=== PATIENT | male | born 1995 | race Hispanic/Latino ===

== ENCOUNTER 2017-08-08 23:28 | Emergency (ER) | payer SELFPAY ==
[2017-08-09] MEDS ORDERED: HYDROCODONE/APAP 7.5/325 MG TAB ONE (00:33)
--- NOTE | 2017-08-09 00:53 | ER ---
Nurse's Notes [facility] Name: Raza Escobedo Jr Age: 22 yrs Sex: Male : 1995 Arrival Date: 08/08/2017 Time: 23:30 Bed 18 Private MD: Diagnosis: Pain in left knee Presentation: 08/08 23:38 Presenting complaint: Patient states: that 2 weeks ago at work he was in a position and fc put a lot of pressure on it. Started to hurt a little bit. Today he was walking down a ramp and his left knee popped and now is he in a lot of pain. Transition of care: patient was not received from another setting of care. Onset of symptoms was July 2017. Risk Assessment: Do you want to hurt yourself or someone else? Patient reports no desire to harm self or others. Initial Sepsis Screen: Does the patient meet any 2 criteria? No. Patient's initial sepsis screen is negative. Does the patient have a suspected source of infection? No. Patient's initial sepsis screen is negative. Care prior to arrival: Medication(s) given: Motrin, 800 mg, taken at 2030. 23:38 Method Of Arrival: Ambulatory 23:38 Acuity: ELE 4 Triage Assessment: 23:41 General: Appears uncomfortable, obese, Behavior is calm, cooperative, appropriate for age. Pain: Complains of pain in left knee Pain currently is 9 out of 10 on a pain scale. Quality of pain is described as sharp, Pain began 2 weeks ago Is continuous, Aggravated by increased activity, repositioning, weight bearing. EENT: No deficits noted. Neuro: Level of Consciousness is awake, alert, obeys commands, Oriented to person, place, time, situation. Cardiovascular: No deficits noted. Respiratory: No deficits noted. GI: No deficits noted. : No deficits noted. Derm: Skin is pink, warm \T\ dry. Musculoskeletal: Circulation, motion, and sensation intact. Capillary refill < 3 seconds, Range of motion: intact in all extremities, Reports pain in left knee. Historical: - Allergies: 23:41 PENICILLINS; fc - Home Meds: 23:41 None [Active]; fc - PMHx: 23:41 None; fc - PSHx: 23:41 None; fc - Immunization history:: Last tetanus immunization: unknown. - Social history:: Smoking status: Patient uses tobacco products, smokes one-half pack cigarettes per day, Patient uses alcohol, occasionally. Patient/guardian denies using street drugs. - Ebola Screening: : Patient negative for fever greater than or equal to 101.5 degrees Fahrenheit, and additional compatible Ebola Virus Disease symptoms Patient denies exposure to infectious person Patient denies travel to an Ebola-affected area in the 21 days before illness onset. Screenin:44 Abuse screen: Denies threats or abuse. Nutritional screening: No deficits noted. fc Tuberculosis screening: No symptoms or risk factors identified. Fall Risk None identified. Assessment: 23:45 Reassessment: see triage assessment. 08/09 00:08 General: Appears uncomfortable, Behavior is calm, cooperative, appropriate for age. jd3 Pain: Complains of pain in left knee Pain does not radiate. Pain currently is 9 out of 10 on a pain scale. Quality of pain is described as aching, sharp, Is continuous. Neuro: Level of Consciousness is awake, alert, obeys commands, Oriented to person, place, time, situation. Cardiovascular: Heart tones S1 S2 present Capillary refill < 3 seconds Patient's skin is warm and dry. Respiratory: Airway is patent Respiratory effort is even, unlabored, Respiratory pattern is regular, symmetrical, Breath sounds are clear bilaterally. GI: No signs and/or symptoms were reported involving the gastrointestinal system. : No signs and/or symptoms were reported regarding the genitourinary system. EENT: No signs and/or symptoms were reported regarding the EENT system. Derm: Skin is intact, Skin is dry, Skin is normal, Skin temperature is warm. Musculoskeletal: Circulation, motion, and sensation intact. Range of motion: limited in left knee. 01:38 Reassessment: Patient appears in no apparent distress at this time. Patient and/or jd3 family updated on plan of care and expected duration. Pain level reassessed. Patient is alert, oriented x 3, equal unlabored respirations, skin warm/dry/pink. pt reported understanding of discharge instructions. crutch training provided before discharge, pt assisted to front of ER on crutches. Patient states feeling better. Vital Signs: 08/08 23:42 BP 148 / 98; Pulse 100; Resp 18; Temp 98.6(O); Pulse Ox 98% on R/A; Weight 142.88 kg fc (R); Height 5 ft. 8 in. (172.72 cm) (R); Pain 9/10; 08/09 01:37 BP 145 / 84; Pulse 80; Resp 18 S; Pulse Ox 97% on R/A; Pain 4/10; jd3 08/08 23:42 Body Mass Index 47.90 (142.88 kg, 172.72 cm) ED Course: 08/08 23:30 Patient arrived in ED. as 23:40 Triage completed. 23:42 Arm band placed on Patient placed in waiting room, Patient notified of wait time. 23:44 Patient has correct armband on for positive identification. Call light in reach. 08/09 00:02 Karel Saul RN is Primary Nurse. jd3 00:11 [place] PA is PHCP. jr8 00:11 Jemal Pérez MD is Attending Physician. jr8 00:45 X-ray completed. Portable x-ray completed in exam room. Patient tolerated procedure kw well. 00:46 XRAY Knee LEFT 3 view In Process Unspecified. EDMS 00:52 Reji Jaquez MD is Referral Physician. jr8 01:39 Ice pack to injury. jd3 01:39 No provider procedures requiring assistance completed. Patient did not have IV access jd3 during this emergency room visit. 01:40 Cristo wrap to left knee. jd3 Administered Medications: 00:34 Drug: [place] (7.5 mg-325 mg) 1 tabs Route: PO; jd3 01:37 Follow up: Response: No adverse reaction; Pain is decreased jd3 Outcome: 00:52 Discharge ordered by . jr8 01:39 Discharged to home ambulatory, with crutches, with family. jd3 01:39 Condition: stable 01:39 Discharge instructions given to patient, family, Instructed on discharge instructions, follow up and referral plans. medication usage, Demonstrated understanding of instructions, follow-up care, medications, Prescriptions given X 2. 01:40 Patient left the ED. jd3 Signatures: Dispatcher [employer] EDOR Karina Mahajan RN RN Terra Sigala Kimberlee kw Roszak, Josh, PA PA jr8 Karel Saul RN RN jd3
--- NOTE | 2017-08-09 00:54 | EDPHYS ---
Physician Documentation [facility] Name: Raza Escobedo Jr Age: 22 yrs Sex: Male : 1995 Arrival Date: 08/08/2017 Time: 23:30 Bed 18 Private MD: ED Physician Jemal Pérez HPI: 08/09 00:49 This 22 yrs old Male presents to ER via Ambulatory with complaints of Knee jr8 Pain. 00:49 The patient presents with pain, tenderness. The complaints affect the left knee. jr8 Context: The problem was sustained at work. Onset: The symptoms/episode began/occurred acutely, today. Modifying factors: The symptoms are alleviated by nothing. the symptoms are aggravated by movement, weight bearing, bending knee. Associated signs and symptoms: The patient has no apparent associated signs or symptoms. Severity of symptoms: At their worst the symptoms were moderate, in the emergency department the symptoms are unchanged. The patient has not experienced similar symptoms in the past. The patient has not recently seen a physician. Patient stated that while walking down a ramp felt a pop in knee. Pain to knee since then with weight bearing. Stated that he has been limping all day . Historical: - Allergies: 08/08 23:41 PENICILLINS; fc - Home Meds: 23:41 None [Active]; fc - PMHx: 23:41 None; fc - PSHx: 23:41 None; fc - Immunization history:: Last tetanus immunization: unknown. - Social history:: Smoking status: Patient uses tobacco products, smokes one-half pack cigarettes per day, Patient uses alcohol, occasionally. Patient/guardian denies using street drugs. - Ebola Screening: : Patient negative for fever greater than or equal to 101.5 degrees Fahrenheit, and additional compatible Ebola Virus Disease symptoms Patient denies exposure to infectious person Patient denies travel to an Ebola-affected area in the 21 days before illness onset. ROS: 08/09 00:49 Eyes: Negative for injury, pain, redness, and discharge, ENT: Negative for injury, jr8 pain, and discharge, Neck: Negative for injury, pain, and swelling, Cardiovascular: Negative for chest pain, palpitations, and edema, Respiratory: Negative for shortness of breath, cough, wheezing, and pleuritic chest pain, Abdomen/GI: Negative for abdominal pain, nausea, vomiting, diarrhea, and constipation, Back: Negative for injury and pain, Skin: Negative for injury, rash, and discoloration, Neuro: Negative for headache, weakness, numbness, tingling, and seizure. MS/extremity: Positive for pain, tenderness, of the left knee. Exam: 00:49 Cardiovascular: Regular rate and rhythm with a normal S1 and S2. No gallops, murmurs, jr8 or rubs. Normal PMI, no JVD. No pulse deficits. Respiratory: Lungs have equal breath sounds bilaterally, clear to auscultation and percussion. No rales, rhonchi or wheezes noted. No increased work of breathing, no retractions or nasal flaring. Skin: Warm, dry with normal turgor. Normal color with no rashes, no lesions, and no evidence of cellulitis. Neuro: Awake and alert, GCS 15, oriented to person, place, time, and situation. Cranial nerves II-XII grossly intact. Motor strength 5/5 in all extremities. Sensory grossly intact. Cerebellar exam normal. Normal gait. 00:49 Musculoskeletal/extremity: Extremities: grossly normal except: noted in the left knee: pain, tenderness, ROM: intact in all extremities, Circulation is intact in all extremities. Sensation intact. Positive Medial McMarray test. negative yancy, varus or vlagus stress test . Vital Signs: 08/08 23:42 BP 148 / 98; Pulse 100; Resp 18; Temp 98.6(O); Pulse Ox 98% on R/A; Weight 142.88 kg fc (R); Height 5 ft. 8 in. (172.72 cm) (R); Pain 9/10; 08/09 01:37 BP 145 / 84; Pulse 80; Resp 18 S; Pulse Ox 97% on R/A; Pain 4/10; jd3 08/08 23:42 Body Mass Index 47.90 (142.88 kg, 172.72 cm) Procedures: 00:51 Splinting: Splint applied to left knee using cristo wrap, applied by nurse. Examined by renae ms, post splint application: neurovascular intact, 2+ distal pulses palpable, brisk capillary refill noted, Patient tolerated well. Crutch training provided to patient and/or family. Return demonstration given. [facility]: 00:11 Patient medically screened. renae 00:51 Data reviewed: vital signs, nurses notes, radiologic studies, plain films, and as a jr8 result, I will discharge patient. Data interpreted: Pulse oximetry: on room air is 98 %. Interpretation: normal. Counseling: I had a detailed discussion with the patient and/or guardian regarding: the historical points, exam findings, and any diagnostic results supporting the discharge/admit diagnosis, radiology results, the need for outpatient follow up, a orthopedic surgeon, to return to the emergency department if symptoms worsen or persist or if there are any questions or concerns that arise at home. 08/09 00:25 Order name: XRAY Knee LEFT 3 view jr8 08/09 00:51 Order name: Cristo wrap-joint; Complete Time: 01:37 jr8 08/09 00:51 Order name: Crutches; Complete Time: : jr8 Administered Medications: 00:34 Drug: [place] (7.5 mg-325 mg) 1 tabs Route: PO; jd3 01:37 Follow up: Response: No adverse reaction; Pain is decreased jd3 Disposition: 06:48 Co-signature as Attending Physician, Jemal Pérez MD. rn Disposition: 08/09/17 00:52 Discharged to Home. Impression: Pain in left knee. - Condition is Stable. - Discharge Instructions: Knee Pain. - Prescriptions for Ibuprofen 800 mg Oral Tablet - take 1 tablet by ORAL route every 12 hours As needed take with food; 20 tablet. Tramadol 50 mg Oral Tablet - take 1 tablet by ORAL route every 8 hours as needed; 12 tablet. - Medication Reconciliation Form, Thank You Letter, Antibiotic Education, Prescription Opioid Use form. - Follow up: Reji Jaquez MD; When: 1 - 2 days; Reason: Recheck today's complaints, Continuance of care, Re-evaluation by your physician. - Problem is new. - Symptoms have improved. Signatures: Dispatcher [employer] EDHI Karina Mahajan RN RN fc Nieto, Roman, MD MD rn Roszak, Josh, PA PA jr8 Karel Saul RN RN jd3 Corrections: (The following items were deleted from the chart) 01:40 00:52 08/09/2017 00:52 Discharged to Home. Impression: Pain in left knee. Condition is jd3 Stable. Forms are Medication Reconciliation Form, Thank You Letter, Antibiotic Education, Prescription Opioid Use. Follow up: Reji Jaquez; When: 1 - 2 days; Reason: Recheck today's complaints, Continuance of care, Re-evaluation by your physician. Problem is new. Symptoms have improved. jr8
--- NOTE | 2017-08-09 09:25 | RAD REPORT ---
EXAM DESCRIPTION: RAD - Knee Left 3 View - 08/09/2017 12:45 am CLINICAL HISTORY: Left knee pain status post injury FINDINGS: No fracture or dislocation is seen. Diffuse edema is present within the subcutaneous tissues.
== END 2017-08-09 01:40 | disposition home or self-care (01) ==
LOC: ER 23:28
DX: M25.562 Pain in left knee (principal); F17.210 Nicotine dependence, cigarettes, uncomplicated; Z88.0 Allergy status to penicillin
CPT/HCPCS: 99284

== ENCOUNTER 2018-05-29 14:09 | Emergency (ER) | payer SELFPAY ==
--- OUTSIDE RECORDS SUMMARY | 2018-05-29 14:11 | XMS REPORT ---
:1995 Author Organization [facility] Address [address] [place] [address] Dr. Savage [address] [id number] Care Team Providers Name Role Phone Unavailable Unavailable Unavailable Problems This patient has no known problems. Allergies, Adverse Reactions, Alerts This patient has no known allergies or adverse reactions. Medications This patient has no known medications.
--- NOTE | 2018-05-29 15:49 | EKG ---
Test Date: 2018-05-29 Test Time: 15:30:26 Delivery Consultant: LORENA MEASUREMENT RESULTS: Intervals: Rate: 99 MS: 154 QRSD: 86 QT: 342 QTc: 438 [place]: P: 13 MS: 154 QRS: 175 T: -9 INTERPRETIVE STATEMENTS: Normal sinus rhythm Right axis deviation Possible Right ventricular hypertrophy Abnormal QRS-T angle, consider primary T wave abnormality Abnormal ECG Compared to ECG 07/21/2015 04:14:14 Right-axis deviation now present T-wave abnormality now present Electronically Signed On 05-29-18 15:48:42 CDT by Curt Mason
--- NOTE | 2018-05-29 16:20 | ER ---
Nurse's Notes [facility] Name: Raza Escobedo Jr Age: 23 yrs Sex: Male : 1995 Arrival Date: 05/29/2018 Time: 14:13 Bed 14 Private MD: None, None Diagnosis: Adverse medication reaction Presentation: 05/29 14:15 Presenting complaint: Patient states: girlfriend was recently dx with chlamydia and he sv was told to take an abx (Zithromax) and he started it yesterday and yesterday he started feeling tingling around his mouths. Transition of care: patient was not received from another setting of care. Onset of symptoms was May 28, 2018. Care prior to arrival: None. 14:15 Method Of Arrival: Ambulatory sv 14:15 Acuity: ELE 3 sv 14:30 Risk Assessment: Do you want to hurt yourself or someone else? Patient reports no hb desire to harm self or others. Initial Sepsis Screen: Does the patient meet any 2 criteria? No. Patient's initial sepsis screen is negative. Does the patient have a suspected source of infection? No. Patient's initial sepsis screen is negative. Historical: - Allergies: 14:17 PENICILLINS; sv - PSHx: 14:17 None; sv - Immunization history:: Flu vaccine is not up to date. - Social history:: Smoking status: Patient/guardian denies using tobacco. - Ebola Screening: : No symptoms or risks identified at this time. Screenin:00 Abuse screen: Denies threats or abuse. Denies injuries from another. Nutritional hb screening: No deficits noted. Tuberculosis screening: No symptoms or risk factors identified. Fall Risk None identified. Assessment: 14:30 General: Appears in no apparent distress. Behavior is calm, cooperative. Pain: Denies hb pain. Neuro: Level of Consciousness is awake, alert, obeys commands, Oriented to person, place, time, situation. Cardiovascular: Capillary refill < 3 seconds Patient's skin is warm and dry. Respiratory: Airway is patent Respiratory effort is even, unlabored, Respiratory pattern is regular, symmetrical, Breath sounds are clear bilaterally. GI: No signs and/or symptoms were reported involving the gastrointestinal system. : No signs and/or symptoms were reported regarding the genitourinary system. EENT: Reports tingling lips. Derm: Skin is intact, is healthy with good turgor. Musculoskeletal: No signs and/or symptoms reported regarding the musculoskeletal system. 15:30 Reassessment: Patient appears in no apparent distress at this time. Patient and/or hb family updated on plan of care and expected duration. Pain level reassessed. Patient is alert, oriented x 3, equal unlabored respirations, skin warm/dry/pink. 16:30 Reassessment: Patient appears in no apparent distress at this time. No changes from hb previously documented assessment. Patient and/or family updated on plan of care and expected duration. Pain level reassessed. Patient is alert, oriented x 3, equal unlabored respirations, skin warm/dry/pink. Vital Signs: 14:17 BP 175 / 98; Pulse 114; Resp 20; Temp 98; Pulse Ox 97% ; Weight 158.76 kg; Height 5 ft. sv 7 in. (170.18 cm); 16:00 BP 168 / 88; Pulse 100; Resp 18; Pulse Ox 100% on R/A; hb 14:17 Body Mass Index 54.82 (158.76 kg, 170.18 cm) sv ED Course: 14:13 Patient arrived in ED. mr 14:13 None, None is Private Physician. mr 14:17 Triage completed. sv 14:17 Arm band placed on. sv 14:25 [place] PA is PHCP. jr8 14:25 Urban Girard MD is Attending Physician. jr8 14:26 Cari Chase RN is Primary Nurse. hb 15:00 Patient has correct armband on for positive identification. Bed in low position. Call light in reach. Side rails up X 1. 15:46 EKG done, by diet tech. reviewed by West ESCOBAR. sm3 16:35 No provider procedures requiring assistance completed. Patient did not have IV access hb during this emergency room visit. Administered Medications: No medications were administered Outcome: 16:19 Discharge ordered by . jr8 16:35 Discharged to home ambulatory, with family. hb 16:35 Condition: stable 16:35 Discharge instructions given to patient, family, Instructed on discharge instructions, follow up and referral plans. medication usage, Demonstrated understanding of instructions, follow-up care, medications. 16:36 Patient left the ED. hb Signatures: Carito, Paola, Erica Fonseca RN mr RosWest mensah PA PA jr8 Cari Chase RN RN hb Montes, Shakira 3 Corrections: (The following items were deleted from the chart) 14:17 14:15 Acuity: ELE 4 lyndsey solorio
--- NOTE | 2018-05-29 16:20 | EDPHYS ---
Physician Documentation [facility] Name: Raza Escobedo Jr Age: 23 yrs Sex: Male : 1995 Arrival Date: 05/29/2018 Time: 14:13 Bed 14 Private MD: None, None ED Physician Urban Girard HPI: 05/29 15:09 This 23 yrs old Male presents to ER via Ambulatory with complaints of reaction jr8 to medication. 15:09 Onset: The symptoms/episode began/occurred acutely, today. Associated signs and jr8 symptoms: Pertinent positives: diarrhea. Modifying factors: The patient symptoms are alleviated by nothing, the patient symptoms are aggravated by nothing. The patient has not experienced similar symptoms in the past. The patient has not recently seen a physician. Patient was recently put on zithromax for possible infection. Stated that he has taken one dose. Shortly after has had paresthesias, nausea, abdominal discomfort, hot flashes, and diarrhea. Denies fevers or abdominal pain. Has stopped the antibiotic . Historical: - Allergies: 14:17 PENICILLINS; sv - PSHx: 14:17 None; sv - Immunization history:: Flu vaccine is not up to date. - Social history:: Smoking status: Patient/guardian denies using tobacco. - Ebola Screening: : No symptoms or risks identified at this time. ROS: 15:09 Eyes: Negative for injury, pain, redness, and discharge, ENT: Negative for injury, jr8 pain, and discharge, Neck: Negative for injury, pain, and swelling, Cardiovascular: Negative for chest pain, palpitations, and edema, Respiratory: Negative for shortness of breath, cough, wheezing, and pleuritic chest pain, Back: Negative for injury and pain, MS/Extremity: Negative for injury and deformity, Skin: Negative for injury, rash, and discoloration. 15:09 Abdomen/GI: Positive for nausea, diarrhea, Negative for abdominal pain, abdominal cramps, abdominal distension, anorexia, dysphagia, hematemesis, black/tarry stool, rectal pain, rectal bleeding, bowel incontinence, flatulence. 15:09 Neuro: Positive for tingling. Exam: 15:09 Eyes: Pupils equal round and reactive to light, extra-ocular motions intact. Lids and jr8 lashes normal. Conjunctiva and sclera are non-icteric and not injected. Cornea within normal limits. Periorbital areas with no swelling, redness, or edema. ENT: Nares patent. No nasal discharge, no septal abnormalities noted. Tympanic membranes are normal and external auditory canals are clear. Oropharynx with no redness, swelling, or masses, exudates, or evidence of obstruction, uvula midline. Mucous membranes moist. Neck: Trachea midline, no thyromegaly or masses palpated, and no cervical lymphadenopathy. Supple, full range of motion without nuchal rigidity, or vertebral point tenderness. No Meningismus. Cardiovascular: Regular rate and rhythm with a normal S1 and S2. No gallops, murmurs, or rubs. Normal PMI, no JVD. No pulse deficits. Respiratory: Lungs have equal breath sounds bilaterally, clear to auscultation and percussion. No rales, rhonchi or wheezes noted. No increased work of breathing, no retractions or nasal flaring. Abdomen/GI: Soft, non-tender, with normal bowel sounds. No distension or tympany. No guarding or rebound. No evidence of tenderness throughout. Back: No spinal tenderness. No costovertebral tenderness. Full range of motion. Skin: Warm, dry with normal turgor. Normal color with no rashes, no lesions, and no evidence of cellulitis. MS/ Extremity: Pulses equal, no cyanosis. Neurovascular intact. Full, normal range of motion. Neuro: Awake and alert, GCS 15, oriented to person, place, time, and situation. Cranial nerves II-XII grossly intact. Motor strength 5/5 in all extremities. Sensory grossly intact. Cerebellar exam normal. Normal gait. Vital Signs: 14:17 BP 175 / 98; Pulse 114; Resp 20; Temp 98; Pulse Ox 97% ; Weight 158.76 kg; Height 5 ft. sv 7 in. (170.18 cm); 16:00 BP 168 / 88; Pulse 100; Resp 18; Pulse Ox 100% on R/A; hb 14:17 Body Mass Index 54.82 (158.76 kg, 170.18 cm) sv MDM: 14:28 Patient medically screened. jr8 15:09 Data reviewed: vital signs, nurses notes, and as a result, I will discharge patient. jr8 Data interpreted: Pulse oximetry: on room air is 97 %. Interpretation: normal. Counseling: I had a detailed discussion with the patient and/or guardian regarding: the historical points, exam findings, and any diagnostic results supporting the discharge/admit diagnosis, the need for outpatient follow up, a family practitioner, to return to the emergency department if symptoms worsen or persist or if there are any questions or concerns that arise at home. ED course: Patient feeling well currently. Asymptomatic at this time. Advised to hold all antibiotics for now. More then likely adverse side effect from the antibiotic. To follow up with PCP in next couple of days. If worse to come back for further evaluation . 05/29 15:13 Order name: EKG; Complete Time: 15:14 jr8 05/29 15:13 Order name: EKG - Nurse/Tech; Complete Time: 16:02 jr8 Administered Medications: No medications were administered Disposition: 16:53 Co-signature as Attending Physician, Urban Girard MD I agree with the assessment and lawrence plan of care. Disposition: 05/29/18 16:19 Discharged to Home. Impression: Adverse medication reaction. - Condition is Stable. - Discharge Instructions: Anaphylactic Reaction, Adult. - Medication Reconciliation Form, Thank You Letter, Antibiotic Education, Prescription Opioid Use form. - Follow up: Private Physician; When: 2 - 3 days; Reason: Recheck today's complaints, Continuance of care, Re-evaluation by your physician. - Problem is new. - Symptoms have improved. Signatures: Paola Arzate, RN RN Urban Borden MD MD cha Roszak, Josh, PA PA jr8 Cari Chase RN RN hb Corrections: (The following items were deleted from the chart) 16:36 16:19 05/29/2018 16:19 Discharged to Home. Impression: Adverse medication reaction. hb Condition is Stable. Forms are Medication Reconciliation Form, Thank You Letter, Antibiotic Education, Prescription Opioid Use. Follow up: Private Physician; When: 2 - 3 days; Reason: Recheck today's complaints, Continuance of care, Re-evaluation by your physician. Problem is new. Symptoms have improved. jr8
== END 2018-05-29 16:36 | disposition home or self-care (01) ==
LOC: ER 14:09
DX: T36.3X5A Adverse effect of macrolides, initial encounter (principal); Y92.9 Unspecified place or not applicable; Z88.0 Allergy status to penicillin
CPT/HCPCS: 93005; 99283

== ENCOUNTER 2018-08-15 01:50 | Emergency (ER) | payer SELFPAY ==
--- OUTSIDE RECORDS SUMMARY | 2018-08-15 01:52 | XMS REPORT ---
:1995 [facility] Address [address] [place] [address] [address] [place] [address] Care Team Providers Name Role Phone Unavailable Unavailable Unavailable Problems This patient has no known problems. Allergies, Adverse Reactions, Alerts This patient has no known allergies or adverse reactions. Medications This patient has no known medications.
--- NOTE | 2018-08-15 02:32 | EDPHYS ---
Physician Documentation [facility] Name: Raza Escobedo Jr Age: 23 yrs Sex: Male : 1995 Arrival Date: 08/15/2018 Time: 01:51 Bed 13 Private MD: ED Physician Kurt Pearl HPI: 08/15 01:56 This 23 yrs old Male presents to ER via Unassigned with complaints of Tonsil kb Pain. 01:56 The patient presents with sore throat. The patient describes throat pain as constant. kb Onset: The symptoms/episode began/occurred 2 day(s) ago. Severity of symptoms: At their worst the symptoms were moderate, in the emergency department the symptoms are unchanged. Modifying factors: The symptoms are alleviated by nothing, the symptoms are aggravated by swallowing, Patient's oral intake status: good Denies contact with similarly ill indivduals. Associated signs and symptoms: Pertinent positives: Sore throat Pertinent negatives chest pain, chills, cough, diarrhea, dysphagia, earache, fever, flu-like symptoms, headache, nausea, rhinorrhea, shortness of breath, vomiting. The patient has not experienced similar symptoms in the past. The patient has not recently seen a physician. Historical: - Allergies: 02:05 PENICILLINS; lp1 - Home Meds: 02:05 None [Active]; lp1 - PMHx: 02:05 None; lp1 - PSHx: 02:05 None; lp1 - Immunization history:: Adult Immunizations up to date. - Social history:: Smoking status: Patient/guardian denies using tobacco. - Ebola Screening: : No symptoms or risks identified at this time. ROS: 01:56 Constitutional: Negative for fever, chills, and weight loss, Neck: Negative for injury, kb pain, and swelling, Cardiovascular: Negative for chest pain, palpitations, and edema, Respiratory: Negative for shortness of breath, cough, wheezing, and pleuritic chest pain, Abdomen/GI: Negative for abdominal pain, nausea, vomiting, diarrhea, and constipation, MS/Extremity: Negative for injury and deformity, Skin: Negative for injury, rash, and discoloration, Neuro: Negative for headache, weakness, numbness, tingling, and seizure. 01:56 ENT: Positive for sore throat. Exam: 01:56 Constitutional: This is a well developed, well nourished patient who is awake, alert, kb and in no acute distress. Head/Face: Normocephalic, atraumatic. Neck: Trachea midline, no thyromegaly or masses palpated, and no cervical lymphadenopathy. Supple, full range of motion without nuchal rigidity, or vertebral point tenderness. No Meningismus. Chest/axilla: Normal chest wall appearance and motion. Nontender with no deformity. No lesions are appreciated. Cardiovascular: Regular rate and rhythm with a normal S1 and S2. No gallops, murmurs, or rubs. Normal PMI, no JVD. No pulse deficits. Respiratory: Lungs have equal breath sounds bilaterally, clear to auscultation and percussion. No rales, rhonchi or wheezes noted. No increased work of breathing, no retractions or nasal flaring. Abdomen/GI: Soft, non-tender, with normal bowel sounds. No distension or tympany. No guarding or rebound. No evidence of tenderness throughout. Skin: Warm, dry with normal turgor. Normal color with no rashes, no lesions, and no evidence of cellulitis. MS/ Extremity: Pulses equal, no cyanosis. Neurovascular intact. Full, normal range of motion. Neuro: Awake and alert, GCS 15, oriented to person, place, time, and situation. Cranial nerves II-XII grossly intact. Motor strength 5/5 in all extremities. Sensory grossly intact. Cerebellar exam normal. Normal gait. 01:56 ENT: Mouth: is normal, Posterior pharynx: Airway: normal, no evidence of obstruction, Tonsils: bilaterally enlarged, with erythema, with exudate, Uvula: normal, midline, swelling, that is mild, erythema, that is moderate, exudate, that is mild. Vital Signs: 02:04 BP 179 / 109; Pulse 105; Resp 18; Temp 98.4(O); Pulse Ox 97% on R/A; Weight 156.49 kg; lp1 Height 5 ft. 7 in. (170.18 cm); Pain 8/10; 03:04 BP 177 / 114; Pulse 95; Resp 18; Pulse Ox 98% on R/A; jb4 02:04 Body Mass Index 54.03 (156.49 kg, 170.18 cm) lp1 MDM: 01:55 Patient medically screened. kb 01:57 Data reviewed: vital signs, nurses notes. kb 02:30 Data interpreted: Pulse oximetry: on room air is 97 %. Interpretation: normal. kb Counseling: I had a detailed discussion with the patient and/or guardian regarding: the historical points, exam findings, and any diagnostic results supporting the discharge/admit diagnosis, lab results, the need for outpatient follow up, a family practitioner, to return to the emergency department if symptoms worsen or persist or if there are any questions or concerns that arise at home. 08/15 01:55 Order name: Strep; Complete Time: 02:31 kb 08/15 02:32 Order name: Throat Culture EDMS Administered Medications: 03:04 Drug: GI Cocktail without - (Maalox Suspension 30 ml, Lidocaine Liquid 2 % 15 jb4 ml) Route: PO; 03:04 Follow up: Response: No adverse reaction; Medication administered at discharge. jb4 Disposition: 06:02 Co-signature as Attending Physician, Kurt Pearl MD. Disposition: 08/15/18 02:31 Discharged to Home. Impression: Acute pharyngitis. - Condition is Stable. - Discharge Instructions: Pharyngitis, [id number], Sore Throat, [id number]. - Medication Reconciliation Form, Thank You Letter, Antibiotic Education, Prescription Opioid Use form. - Follow up: Emergency Department; When: As needed; Reason: Worsening of condition. Follow up: Private Physician; When: 2 - 3 days; Reason: Recheck today's complaints, Continuance of care, Re-evaluation by your physician. Signatures: Dispatcher [employer] EDLA Cheyenne Post, MAIKEL-Raysa KWANP-Kathleen Benites, RN RN lp1 Payam Yun RN RN jb4 Kurt Pearl MD MD Corrections: (The following items were deleted from the chart) 03:11 02:31 08/15/2018 02:31 Discharged to Home. Impression: Acute pharyngitis. Condition is jb4 Stable. Forms are Medication Reconciliation Form, Thank You Letter, Antibiotic Education, Prescription Opioid Use. Follow up: Emergency Department; When: As needed; Reason: Worsening of condition. Follow up: Private Physician; When: 2 - 3 days; Reason: Recheck today's complaints, Continuance of care, Re-evaluation by your physician. kb
--- NOTE | 2018-08-15 02:32 | ER ---
Nurse's Notes [facility] Name: Raza Escobedo Jr Age: 23 yrs Sex: Male : 1995 Arrival Date: 08/15/2018 Time: 01:51 Bed 13 Private MD: Diagnosis: Acute pharyngitis Presentation: 08/15 02:03 Presenting complaint: Patient states: Pain to tonsils x 2 days, feels swollen, painful lp1 when swallowing; Denies any fever. Transition of care: patient was not received from another setting of care. Onset of symptoms was August 15, 2018. Risk Assessment: Do you want to hurt yourself or someone else? Patient reports no desire to harm self or others. Initial Sepsis Screen: Does the patient meet any 2 criteria? No. Patient's initial sepsis screen is negative. Does the patient have a suspected source of infection? No. Patient's initial sepsis screen is negative. Care prior to arrival: None. 02:03 Method Of Arrival: Ambulatory lp1 02:03 Acuity: ELE 4 lp1 Historical: - Allergies: 02:05 PENICILLINS; lp1 - Home Meds: 02:05 None [Active]; lp1 - PMHx: 02:05 None; lp1 - PSHx: 02:05 None; lp1 - Immunization history:: Adult Immunizations up to date. - Social history:: Smoking status: Patient/guardian denies using tobacco. - Ebola Screening: : No symptoms or risks identified at this time. Screenin:05 Abuse screen: Denies threats or abuse. Denies injuries from another. Nutritional lp1 screening: No deficits noted. Tuberculosis screening: No symptoms or risk factors identified. Fall Risk None identified. Assessment: 02:27 General: Appears in no apparent distress. uncomfortable, Behavior is calm, cooperative, jb4 appropriate for age. Pain: Complains of pain in throat, tongue Pain does not radiate. Pain currently is 8 out of 10 on a pain scale. Quality of pain is described as aching. Neuro: Level of Consciousness is awake, alert, obeys commands, Oriented to person, place, time, situation. Cardiovascular: Patient's skin is warm and dry. Respiratory: Airway is patent Respiratory effort is even, unlabored, Respiratory pattern is regular, symmetrical. GI: No signs and/or symptoms were reported involving the gastrointestinal system. : No signs and/or symptoms were reported regarding the genitourinary system. EENT: Throat is reddened has patchy exudate has enlarged tonsils bilaterally with gag reflex present. Derm: Skin is intact, Skin is pink, warm \T\ dry. Musculoskeletal: Circulation, motion, and sensation intact. 03:04 Reassessment: Patient appears in no apparent distress at this time. Patient and/or jb4 family updated on plan of care and expected duration. Pain level reassessed. Patient is alert, oriented x 3, equal unlabored respirations, skin warm/dry/pink. PT left ED ambulatory with steady gate. Verbalized understanding of d/c and follow instructions. Vital Signs: 02:04 BP 179 / 109; Pulse 105; Resp 18; Temp 98.4(O); Pulse Ox 97% on R/A; Weight 156.49 kg; lp1 Height 5 ft. 7 in. (170.18 cm); Pain 8/10; 03:04 BP 177 / 114; Pulse 95; Resp 18; Pulse Ox 98% on R/A; jb4 02:04 Body Mass Index 54.03 (156.49 kg, 170.18 cm) lp1 ED Course: 01:51 Patient arrived in ED. am2 01:55 Cheyenne Post FNP-C is [facility]. kb 01:55 Kurt Pearl MD is Attending Physician. kb 02:00 Payam Yun, PAM is Primary Nurse. jb4 02:03 Strep swab sent to lab. lp1 02:04 Triage completed. lp1 02:05 Arm band placed on right wrist. lp1 02:05 Patient has correct armband on for positive identification. lp1 03:04 No provider procedures requiring assistance completed. Patient did not have IV access jb4 during this emergency room visit. Administered Medications: 03:04 Drug: GI Cocktail without - (Maalox Suspension 30 ml, Lidocaine Liquid 2 % 15 jb4 ml) Route: PO; 03:04 Follow up: Response: No adverse reaction; Medication administered at discharge. jb4 Outcome: 02:31 Discharge ordered by . kb 03:04 Discharged to home ambulatory. jb4 03:04 Condition: stable 03:04 Discharge instructions given to patient, Instructed on discharge instructions, follow up and referral plans. Demonstrated understanding of instructions, follow-up care. 03:11 Patient left the ED. jb4 Signatures: Cheyenne Post, Kathleen Perez RN RN lp1 Payam Yun RN RN jb4 Reema Harvey 2
[2018-08-15] MEDS ORDERED: MAGNE/ALUM HYDROXD 30 ML UCUP ONE (03:09)
[2018-08-15] MEDS ORDERED: LIDOCAINE VISCOUS 2% SOLN 15 ML UDC ONE (03:10)
== END 2018-08-15 03:11 | disposition home or self-care (01) ==
LOC: ER 01:50
DX: J02.9 Acute pharyngitis, unspecified (principal); Z88.0 Allergy status to penicillin
CPT/HCPCS: 87070; 87081; 99283

== ENCOUNTER 2018-08-16 00:58 | Emergency (ER) | payer SELFPAY ==
--- OUTSIDE RECORDS SUMMARY | 2018-08-16 01:00 | XMS REPORT ---
:1995 [facility] Address [address] [place] [address] [address] [place] [address] Care Team Providers Name Role Phone Unavailable Unavailable Unavailable Problems This patient has no known problems. Allergies, Adverse Reactions, Alerts This patient has no known allergies or adverse reactions. Medications This patient has no known medications.
--- NOTE | 2018-08-16 01:16 | EDPHYS ---
Physician Documentation [facility] Name: Raza Escobedo Jr Age: 23 yrs Sex: Male : 1995 Arrival Date: 08/16/2018 Time: 00:59 Bed 13 Private MD: ED Physician Rikki Dempsey HPI: 08/16 01:09 This 23 yrs old Male presents to ER via Unassigned with complaints of Tonsil kb Pain. 01:10 The patient presents with sore throat. The patient describes throat pain as constant. kb Onset: The symptoms/episode began/occurred 3 day(s) ago. Severity of symptoms: At their worst the symptoms were moderate, in the emergency department the symptoms are unchanged. 01:11 Modifying factors: The symptoms are alleviated by nothing, the symptoms are aggravated kb by swallowing, Patient's oral intake status: limited fluid intake, limited food intake, Denies contact with similarly ill indivduals. Associated signs and symptoms: Pertinent positives: Sore throat Pertinent negatives chest pain, chills, cough, diarrhea, dysphagia, earache, fever, flu-like symptoms, headache, nausea, rhinorrhea, shortness of breath, vomiting. The patient has not experienced similar symptoms in the past. The patient has been recently seen at the [facility] Emergency Department, yesterday, for similar complaints labs were performed. Pt states his throat pain is getting worse. States he tried the over the counter medication that was recommended yesterday, but it didn't work. . Historical: - Allergies: 01:13 PENICILLINS; jd3 - Home Meds: 01:13 None [Active]; jd3 - PMHx: 01:13 None; jd3 - PSHx: 01:13 None; jd3 - Immunization history:: Adult Immunizations up to date. - Social history:: Smoking status: Patient uses tobacco products, denies chronic smoking, but will smoke occasionally. - Ebola Screening: : Patient negative for fever greater than or equal to 101.5 degrees Fahrenheit, and additional compatible Ebola Virus Disease symptoms. ROS: 01:10 Constitutional: Negative for fever, chills, and weight loss, Cardiovascular: Negative kb for chest pain, palpitations, and edema, Respiratory: Negative for shortness of breath, cough, wheezing, and pleuritic chest pain, Abdomen/GI: Negative for abdominal pain, nausea, vomiting, diarrhea, and constipation, MS/Extremity: Negative for injury and deformity, Skin: Negative for injury, rash, and discoloration, Neuro: Negative for headache, weakness, numbness, tingling, and seizure. 01:10 ENT: Positive for sore throat. Exam: 01:07 Constitutional: This is a well developed, well nourished patient who is awake, alert, kb and in no acute distress. Head/Face: Normocephalic, atraumatic. Chest/axilla: Normal chest wall appearance and motion. Nontender with no deformity. No lesions are appreciated. Cardiovascular: Regular rate and rhythm with a normal S1 and S2. No gallops, murmurs, or rubs. Normal PMI, no JVD. No pulse deficits. Respiratory: Lungs have equal breath sounds bilaterally, clear to auscultation and percussion. No rales, rhonchi or wheezes noted. No increased work of breathing, no retractions or nasal flaring. Abdomen/GI: Soft, non-tender, with normal bowel sounds. No distension or tympany. No guarding or rebound. No evidence of tenderness throughout. Skin: Warm, dry with normal turgor. Normal color with no rashes, no lesions, and no evidence of cellulitis. MS/ Extremity: Pulses equal, no cyanosis. Neurovascular intact. Full, normal range of motion. Neuro: Awake and alert, GCS 15, oriented to person, place, time, and situation. Cranial nerves II-XII grossly intact. Motor strength 5/5 in all extremities. Sensory grossly intact. Cerebellar exam normal. Normal gait. 01:07 ENT: Posterior pharynx: Airway: normal, no evidence of obstruction, Tonsils: bilaterally enlarged, with erythema, with exudate, Uvula: normal, midline, swelling, that is moderate, erythema, that is marked, exudate, that is moderate. Vital Signs: 01:13 BP 156 / 97; Pulse 102; Resp 18 S; Temp 98.3(O); Pulse Ox 97% on R/A; Weight 158.76 kg jd3 (R); Height 5 ft. 7 in. (170.18 cm) (R); Pain 10/10; 01:13 Body Mass Index 54.82 (158.76 kg, 170.18 cm) jd3 MDM: 01:02 Patient medically screened. kb 01:04 Data reviewed: vital signs, nurses notes. kb 01:07 Data interpreted: Pulse oximetry: on room air is 98 %. Interpretation: normal. kb Counseling: I had a detailed discussion with the patient and/or guardian regarding: the historical points, exam findings, and any diagnostic results supporting the discharge/admit diagnosis, the need for outpatient follow up, a family practitioner, to return to the emergency department if symptoms worsen or persist or if there are any questions or concerns that arise at home. 01:09 ED course: I saw pt last night for same complaint. Strep test negative, culture kb pending. Redness and exudate worse today on physical exam. Will treat with antibiotics.. Administered Medications: :22 Drug: Zithromax 500 mg Route: PO; jd3 :22 Follow up: Response: Medication administered at discharge. jd3 Disposition: 02:09 Co-signature as Attending Physician, Rikki Dempsey MD I agree with the assessment and tw4 plan of care. Disposition: 08/16/18 01:15 Discharged to Home. Impression: Acute tonsillitis. - Condition is Stable. - Discharge Instructions: Tonsillitis, [id number], Strep Throat, [id number]. - Prescriptions for Zithromax 500 mg Oral Tablet - take 1 tablet by ORAL route once daily for 5 days; 5 tablet. - Medication Reconciliation Form, Thank You Letter, Antibiotic Education, Prescription Opioid Use form. - Follow up: Emergency Department; When: As needed; Reason: Worsening of condition. Follow up: Private Physician; When: 2 - 3 days; Reason: Recheck today's complaints, Continuance of care, Re-evaluation by your physician. Signatures: Cheyenne Post, Karel Wood RN RN Rikki Loera MD MD tw4 Corrections: (The following items were deleted from the chart) 01:10 01:09 ED course: I saw pt last night for same complaint. Redness and exudate worse kb today on physical exam. Will treat with antibiotics.. kb 01:12 01:10 Onset: The symptoms/episode began/occurred yesterday, kb kb 01:28 01:15 08/16/2018 01:15 Discharged to Home. Impression: Acute tonsillitis. Condition is jd3 Stable. Forms are Medication Reconciliation Form, Thank You Letter, Antibiotic Education, Prescription Opioid Use. Follow up: Emergency Department; When: As needed; Reason: Worsening of condition. Follow up: Private Physician; When: 2 - 3 days; Reason: Recheck today's complaints, Continuance of care, Re-evaluation by your physician. kb
--- NOTE | 2018-08-16 01:16 | ER ---
Nurse's Notes [facility] Name: Raza Escobedo Jr Age: 23 yrs Sex: Male : 1995 Arrival Date: 08/16/2018 Time: 00:59 Bed 13 Private MD: Diagnosis: Acute tonsillitis Presentation: 08/16 01:08 Presenting complaint: Patient states: "I was here yesterday and My tonsils are feeling jd3 worse. they gave me medication to help numb it, but it has gotten worse.". Transition of care: patient was not received from another setting of care. Onset of symptoms was August 16, 2018. Risk Assessment: Do you want to hurt yourself or someone else? Patient reports no desire to harm self or others. Initial Sepsis Screen: Does the patient meet any 2 criteria? HR > 90 bpm. No. Patient's initial sepsis screen is negative. Does the patient have a suspected source of infection? No. Patient's initial sepsis screen is negative. Care prior to arrival: None. 01:08 Method Of Arrival: Ambulatory jd3 01:08 Acuity: ELE 4 jd3 Historical: - Allergies: 01:13 PENICILLINS; jd3 - Home Meds: 01:13 None [Active]; jd3 - PMHx: 01:13 None; jd3 - PSHx: 01:13 None; jd3 - Immunization history:: Adult Immunizations up to date. - Social history:: Smoking status: Patient uses tobacco products, denies chronic smoking, but will smoke occasionally. - Ebola Screening: : Patient negative for fever greater than or equal to 101.5 degrees Fahrenheit, and additional compatible Ebola Virus Disease symptoms. Screenin:16 Abuse screen: Denies threats or abuse. Nutritional screening: No deficits noted. jd3 Tuberculosis screening: No symptoms or risk factors identified. Fall Risk None identified. Assessment: 01:14 General: Appears in no apparent distress. uncomfortable, Behavior is calm, cooperative, jd3 appropriate for age. Pain: Complains of pain in throat Quality of pain is described as aching, stinging. Neuro: Level of Consciousness is awake, alert, obeys commands, Oriented to person, place, time, situation, Appropriate for age. Cardiovascular: Capillary refill < 3 seconds Patient's skin is warm and dry. Respiratory: Airway is patent Respiratory effort is even, unlabored, Respiratory pattern is regular, symmetrical, Breath sounds are clear bilaterally. GI: No signs and/or symptoms were reported involving the gastrointestinal system. : No signs and/or symptoms were reported regarding the genitourinary system. EENT: Throat is reddened has patchy exudate has enlarged tonsils. Derm: Skin is intact, Skin is dry, Skin is normal, Skin temperature is warm. Musculoskeletal: Circulation, motion, and sensation intact. Range of motion: intact in all extremities. 01:22 Reassessment: Patient appears in no apparent distress at this time. No changes from jd3 previously documented assessment. Patient and/or family updated on plan of care and expected duration. Pain level reassessed. Patient is alert, oriented x 3, equal unlabored respirations, skin warm/dry/pink. Vital Signs: 01:13 BP 156 / 97; Pulse 102; Resp 18 S; Temp 98.3(O); Pulse Ox 97% on R/A; Weight 158.76 kg jd3 (R); Height 5 ft. 7 in. (170.18 cm) (R); Pain 10/10; 01:13 Body Mass Index 54.82 (158.76 kg, 170.18 cm) jd3 ED Course: 00:59 Patient arrived in ED. ds1 01:02 [facility] kb 01:02 Rikki Dempsey MD is Attending Physician. kb 01:07 Karel Saul, PAM is Primary Nurse. jd3 01:10 Triage completed. jd3 01:14 Arm band placed on. jd3 01:16 Patient has correct armband on for positive identification. Bed in low position. Call jd3 light in reach. Side rails up X 1. 01:23 No provider procedures requiring assistance completed. Patient did not have IV access jd3 during this emergency room visit. Administered Medications: :22 Drug: Zithromax 500 mg Route: PO; jd3 01:22 Follow up: Response: Medication administered at discharge. jd3 Outcome: 01:15 Discharge ordered by . kb 01:25 Discharged to home ambulatory, with family. jd3 01:25 Condition: stable 01:25 Discharge instructions given to patient, Instructed on discharge instructions, follow up and referral plans. Demonstrated understanding of instructions, follow-up care, Prescriptions given X 1. 01:28 Patient left the ED. jd3 Signatures: Cheyenne Post FNP-C FNP-Kellie Murillo ds1 Karel Saul, RN RN jd3
[2018-08-16] MEDS ORDERED: AZITHROMYCIN 250 MG TAB ONE (01:33)
== END 2018-08-16 01:28 | disposition home or self-care (01) ==
LOC: ER 00:58
DX: J03.90 Acute tonsillitis, unspecified (principal); Z88.0 Allergy status to penicillin; Z72.0 Tobacco use
CPT/HCPCS: 99283